=== PATIENT | male | born 1990 | race Caucasian/White ===

== ENCOUNTER 2017-06-15 20:07 | Emergency (ER) | payer MEDICARE, OTHER ==
[2017-06-15 21:31] LABS: Hematocrit 37.4 % (42.0-52.0); Hemoglobin 11.2 gm/dL (13.5-18.0); Mean Cell Volume 71.2 fl (78-100); Mean Corpuscular Hemoglobin 21.3 pg (27-31); Mean Corpuscular Hgb Conc 29.9 g/dl (32-36); Mean Platelet Volume 8.9 fl (6.0-9.5); Neutrophil # 5.4 K/mm3 (1.3-6.0); Neutrophil % 69.8 % (42-75.0); Platelet Count 263 K/mm3 (150-450); Red Blood Count 5.25 M/mm3 (4.7-6.0); Red Cell Distribution Width 18.7 % (11.5-14.0); White Blood Count 7.7 K/mm3 (4.0-10.5)
[2017-06-15 21:42] LABS: Albumin * 3.3 gm/dl (3.4-5.0); Anion Gap 18.3 mmol/L (6.8-13.8); BUN/Creatinine Ratio 19.4 (9.0-21.6); Bilirubin, Total 0.2 mg/dL (0.0-1.1); Ca. Corrected For Albumin 8.6 mg/dL (8.4-10.2); Calcium * 8.4 mg/dL (7.9-10.9); Carbon Dioxide 21.4 mmol/L (24-32.6); Potassium 3.7 mmol/L (3.4-4.6); Total Protein 6.7 gm/dL (6.2-8.2)
[2017-06-15 21:49] LABS: Urine Bilirubin Negative (NEGATIVE); Urine Blood 25 /ul (NEGATIVE); Urine Ketone Negative (NEGATIVE); Urine Nitrite Negative (NEGATIVE); Urine Protein 15 mg/dL (NEGATIVE); Urine Urobilinogen Normal (NORMAL); Urine pH 6.5 pH (5.0-7.0)
[2017-06-15 22:02] LABS: Urine Appearance Cloudy; Urine Bacteria 1+; Urine Color Yellow; Urine WBC 0-5 /hpf (0-5)
[2017-06-15 22:03] LABS: Urine Amorphous Sediment Many - 3+ (NONE-FEW)
--- NOTE | 2017-06-15 22:15 | ERNOTE ---
Neuro HPI ER Record Date of Service: 06/15/17 Presenting Symptoms: weakness Time Seen by Provider: 06/15/17 21:10 Immunizations: IMMUNIZATION HX Immunizations Up to Date Yes History of Influenza Vaccine No Hx Pneumococcal Vaccination No Allergies/Adverse Reactions: Allergies Allergy/AdvReac Type Severity Reaction Status Date / Time No Known Allergies Allergy Verified 03/25/16 16:20 Home Medications: HOME MEDICATIONS LORazepam [Ativan] 1 mg PO BID 08/12/12 [Last Taken Unknown] Lamotrigine [Lamictal] 400 mg PO BID 08/12/12 [Last Taken Unknown] risperiDONE [Risperdal Solution] 2 ml PO HS 08/12/12 [Last Taken Unknown] Clobazam [Onfi] 20 mg PO BID 10/29/13 [Last Taken Unknown] Omeprazole [Prilosec] 40 mg PO BID #60 capsule.dr 10/31/13 [Last Taken Unknown] Lactulose [Enulose] 15 ml PO DAILY #450 ml 03/25/16 [Last Taken Unknown] Topiramate [Trokendi Xr] 100 mg PO BID 03/25/16 [Last Taken Unknown] risperiDONE [Risperdal Solution] 1 ml PO DAILY 03/25/16 [Last Taken Unknown] Cholecalciferol (Vitamin D3) [Vitamin D3] 20 ml MC BID 06/15/17 [Last Taken Unknown] Valproic Acid (As Sodium Salt) [Valproic Acid] 10 mg PO BID 06/15/17 [Last Taken Unknown] - History of Present Illness Narrative: 27-year-old male presents to the emergency room for increase lethargy per licensed occupational therapist. This 27-year-old male has a long-standing history of cerebral palsy and global seizures. Patient's brother is his full-time licensed occupational therapist and states that about a week ago his neurologist increased his valproic acid by doubling the dose due to him being subtherapeutic on a recent lab draw. Brother states that Steven has had increased lethargy and has been sleeping the majority of the day and is concerned that his valporic acid level is too high. Date (Duration): 06/15/17 Onset: gradual onset Severity: mild Context: other - medication iincrease - Character of Deficits Additional Deficits: Present: other - sleeping more Baseline Cognition: Present: poor alertness - history of CP with seizures. Baseline Gait: Present: walks w/o assistance Associated Symptoms: Reports: decreased responsiveness Review of Systems - Review of Systems Constitutional: Present: See HPI EYE: Present: no symptoms reported ENT: Present: no symptoms reported Respiratory: Present: no symptoms reported Cardiology: Present: no symptoms reported Gastrointestinal/Abdominal: Present: no symptoms reported Genitourinary: Present: no symptoms reported Musculoskeletal: Present: no symptoms reported Skin: Present: no symptoms reported Neurological: Present: See HPI. Absent: seizure Endocrine: Present: no symptoms reported Hematologic/Lymphatic: Present: no symptoms reported Psych: Present: no symptoms reported All Other Systems: All systems neg except as marked - Patient's Past Medical History Patient History - Medical: Seizures, Other Patient History - Cardiac/Respiratory: No pertinent hx Patient History - Cancer: No Hx of Cancer Patient History - Surgical Procedures: Ear Tubes, Other Patient History - Other: None - Social History Smoking Status: Never smoker - Immunizations Immunizations Up to Date: Yes Hx Pneumococcal Vaccination: No History of Influenza Vaccine: No Physical Exam - Physical Exam Narrative: Patient does arouse when stimulated. He will track you in the room and smile when asked. Brother states that that is normal for the patient, the patient will go back to sleep after a few minutes of not being stimulated. That is his primary concern. patient was able to eat and drink while in the room during the visit and did follow his normal amt of commands per brother. General Appearance: Present: wd/wn, no apparent distress, sleeping/easy to arouse Head Exam: Present: normal inspection, no evidence of injury, other - wearing his foam helmet Eye Exam: Normal inspection: bilateral, PERRL: bilateral Ears, Nose, Throat: Present: normal ENT inspection, normal pharynx Neck: Present: normal inspection, nontender, supple, full range of motion Respiratory: Present: no respiratory distress, normal breath sounds, no accessory muscle use, chest nontender, lungs clear Cardiovascular/Chest: Present: regular rate, rhythm, no murmur, normal peripheral pulses Gastrointestinal/Abdominal: Present: normal bowel sounds, nontender, nondistended, soft, no organomegaly Rectal Exam: Present: deferred Male Genitals Exam: Present: normal genitalia Back Exam: Present: normal inspection, normal range of motion, no CVA tenderness , no vertebral tenderness Extremity Exam: Present: normal inspection, non-tender, normal range of motion, no edema Neurological Exam: Present: other - patienthas CP and when awake he is at his baseline per brother, patient does fall asleep easily if not stimulated Skin Exam: Present: normal color, warm/dry Lymphatic Exam: Present: no adenopathy Donnie Coma Scale - Assess Eye Opening: Spontaneous Motor: Obeys Commands Verbal: None - patient is nonverbal - Total Coma Scale Total: 11 ED Progress - Results and Orders Patient's Lab Results:: I have reviewed the patient's lab results. - Vital Signs Patient's Vital Signs:: I have reviewed the patient's vital signs. Vital Signs: Vital Signs 06/15/17 06/15/17 06/15/17 20:18 20:46 21:28 Temperature 36.4 C L Pulse Rate 63 66 71 Respiratory 18 14 Rate Blood Pressure 94/41 100/48 97/57 O2 Sat by Pulse 93 96 94 Oximetry - Progress/Reassessment Chief Complaint: Altered Mental Status Progress:: Unchanged Plan - Plan Plan: After discussing patient's LOC with his caregiver I did suggest a head CT for patient and licensed occupational therapist/brother did refuse a head CT at this time. He states he thinks this is related to the valporic acid and is not wanting to do a CAT scan of his brother's head. I was able to get a hold the patient's neurologist Dr. Castellanos. She stated that they had increased the patient's medication week ago. She states that the increased lethargy could very well be from the medication increased and suggests that we go from 10 mL BID to 7ml BID and for that Steven's caregiver to call her office on Monday and report how he is doing. Both parties are in agreement to this plan of care. patient is to be dicharged. Caregiver does not need a script, he stated he has several bottles of the medication at home and will dose accordingly. patients critical care nurse practitioner will be notified if urine culture grows anything and he will be treated accordingly. Departure Clinical Impression: Medication dosage changed too rapidly - Departure Disposition: Home Follow Up Needed Condition: Stable Instructions: Basics of Medicine Management Additional Instructions: per Dr Castellanos patient medication is to be decreased to 7ml twice a day. Call Dr Castellanos office Monday and give her an update on how Steven is doing. Continue other previous home medications. Return to the emergency room if symptoms continue to persist or become worse.
[2017-06-15 22:21] VITALS: BP 108/60
== END 2017-06-15 22:23 | disposition home or self-care (01) ==
LOC: ER 20:07
DX: T50.905A Adverse effect of unspecified drugs, medicaments and biological substances, initial encounter (principal); Y92.009 Unspecified place in unspecified non-institutional (private) residence as the place of occurrence of the external cause; G80.9 Cerebral palsy, unspecified; G40.89 Other seizures; Z53.29 Procedure and treatment not carried out because of patient's decision for other reasons